=== PATIENT | female | born 1940 | race Caucasian/White ===

== ENCOUNTER → 2017-03-29 | Outpatient (CLI) | payer MEDICARE ==
[~2017-03-29] MED LIST: GADOBUTROL 7.5 MMOL/7.5 ML PFS ONE
== END | disposition home or self-care (01) ==
LOC: CFH 10:03
PROVIDERS: ATTEND Psychiatry & Neurology Neurology
DX: M50.322 Other cervical disc degeneration at C5-C6 level (principal); M50.222 Other cervical disc displacement at C5-C6 level; M47.892 Other spondylosis, cervical region; G24.3 Spasmodic torticollis
CPT/HCPCS: 72156; 82565; A9585

== ENCOUNTER → 2017-04-16 | Outpatient (CLI) | payer MEDICARE | END | disposition home or self-care (01) | LOC: CFH 07:43 | PROVIDERS: ATTEND Internal Medicine Cardiovascular Disease | DX: R53.82 Chronic fatigue, unspecified (principal) | CPT/HCPCS: 78452; 93017; A9502 ==

== ENCOUNTER → 2017-12-30 | Outpatient (CLI) | payer MEDICARE | END | disposition home or self-care (01) | LOC: EDSTATUS 08:45 → CFH 08:55 | DX: Z12.31 Encounter for screening mammogram for malignant neoplasm of breast (principal); Z13.820 Encounter for screening for osteoporosis; M85.88 Other specified disorders of bone density and structure, other site; N95.9 Unspecified menopausal and perimenopausal disorder | CPT/HCPCS: 77063; 77080; 77067 ==

== ENCOUNTER → 2018-04-24 | Outpatient (CLI) | payer MEDICARE | END | disposition home or self-care (01) | LOC: CARD 15:07 | PROVIDERS: ATTEND Psychiatry & Neurology Neurology | DX: G24.3 Spasmodic torticollis (principal); I10 Essential (primary) hypertension; H35.3130 Nonexudative age-related macular degeneration, bilateral, stage unspecified; H50.10 Unspecified exotropia | CPT/HCPCS: 95867 ==

== ENCOUNTER 2018-08-13 12:18 | Observation (INO) | payer MEDICARE ==
[~2018-08-13] VITALS: Ht 154.9 cm; Wt 65.0 kg
--- NOTE | 2018-08-13 12:24 | NUR ---
pt bib remsa for sudden onset epigastric cp at 11:00, resolved by 12:00. hx of anxiety. pt states she had a stressful morning prior to cp. currently 0/10 pain. connected to all monitors. vss. md to bedside for assesment. orders received. lab to bedside for draw. awaiting results.
[2018-08-13 12:36] LABS: BASOPHILS # (AUTO) 0.02 x10^3/uL (0-0.1); BASOPHILS % (AUTO) 0 % (0-1); EOSINOPHILS # (AUTO) 0.05 x10^3/uL (0-0.4); EOSINOPHILS % (AUTO) 1 % (1-7); LYMPHOCYTES % (AUTO) 21 % (22-44); MD NO; MEAN CORPUSCULAR HEMOGLOBIN 29.1 pg (27.0-34.8); MEAN CORPUSCULAR HGB CONC 33.3 g/dL (32.4-35.8); MEAN CORPUSCULAR VOLUME 87.3 fL (80-100); MEAN PLATELET VOLUME 7.5 fL (7.4-10.4); MONOCYTES # (AUTO) 0.39 x10^3/uL (0.2-0.8); MONOCYTES % (AUTO) 7 % (2-9); NEUTROPHILS # (AUTO) 4.13 x10^3/uL (1.8-6.8); NEUTROPHILS % (AUTO) 71 % (42-75); PLATELET COUNT 238 x10^3/uL (130-400); RED BLOOD COUNT 4.79 x10^6/uL (3.82-5.3); RED CELL DISTRIBUTION WIDTH 12.9 % (9.6-15.2)
[2018-08-13 12:46] LABS: INTERNATIONAL NORMALIZED RATIO 1.01 (0.93-1.1); PROTHROMBIN TIME 10.7 Seconds (9.6-11.5)
[2018-08-13 13:14] LABS: ALBUMIN 3.7 g/dL (3.4-5.0); ANION GAP 6 mmol/L (5-15); CALCIUM 8.9 mg/dL (8.5-10.1); CHLORIDE 108 mmol/L (98-107)
[2018-08-13 13:20] LABS: ALANINE AMINOTRANSFERASE 19 U/L (12-78); ALKALINE PHOSPHATASE 93 U/L (45-117); BILIRUBIN,TOTAL 0.8 mg/dL (0.2-1.0); CREATININE 0.82 mg/dL (0.55-1.02); TOTAL PROTEIN 7.2 g/dL (6.4-8.2); TROPONIN I < 0.015 ng/mL (0.000-0.045)
[2018-08-13] MEDS ORDERED: HYDR28.423 TP (13:23)
[2018-08-13] MEDS ORDERED: AMLO-150 PO (13:23)
[2018-08-13] MEDS ORDERED: fluticasone INH (13:23)
[2018-08-13] MEDS ORDERED: OXYB5TAB PO (13:23)
[2018-08-13] MEDS ORDERED: GLUC1TAB55 PO (13:23)
[2018-08-13] MEDS ORDERED: LOSA50TA14 PO (13:23)
[2018-08-13] MEDS ORDERED: DULO20CA45 PO (13:23)
--- NOTE | 2018-08-13 14:01 | NUR ---
PT RESTING IN ROOM. CALL LIGHT WITHIN REACH. AWAITING BED ASSIGNMENT.
--- NOTE | 2018-08-13 14:52 | NUR ---
REPORT GIVEN TO [facility]. PT READY FOR TRANSPORT.
[2018-08-13] MEDS ORDERED: ACETAMINOPHEN 650 MG/20.3 ML UDC PO PRN (15:30)
[2018-08-13] MEDS ORDERED: NITROGLYCERIN SINGLE TAB 0.4 MG SL PRN (15:30)
[2018-08-13] MEDS ORDERED: NITROGLYCERIN 0.4 MG/SPRAY SL PRN (15:30)
[2018-08-13] MEDS ORDERED: ONDANSETRON 2MG/ML, 2ML IVP PRN (15:30)
[2018-08-13] MEDS ORDERED: morphine SULFATE 10 MG/ML, 1ML IV PRN (15:30)
[2018-08-13] MEDS ORDERED: NITROGLYCERIN 0.4 MG BOTTLE (25 TABS) SL PRN (15:30)
[2018-08-13 15:31] VITALS: BP 149/72
[2018-08-13] MEDS: ENOXAPARIN 40 MG/0.4 ML SQ SCH (16:25)
[2018-08-13 18:34] LABS: TROPONIN I < 0.015 ng/mL (0.000-0.045)
[2018-08-13] MEDS: SODIUM CHLORIDE FLUSH 10ML SYR IVF SCH (20:30)
[2018-08-13] MEDS: DULOXETINE 20 MG CAPSULE.DR PO SCH (20:30)
[2018-08-13] MEDS: LOSARTAN 50MG TABLET PO SCH (20:31)
[2018-08-13 20:41] VITALS: BP 128/72
[2018-08-14 01:02] LABS: TROPONIN I < 0.015 ng/mL (0.000-0.045)
[2018-08-14 01:36] VITALS: BP 128/75
[2018-08-14] MEDS ORDERED: ASPIRIN 325 MG TABLET EC PO SCH (06:00)
[2018-08-14 06:07] LABS: CHOL/HDL RATIO 3.5; LDL/HDL RATIO 2.2 (0.5-3.0)
[2018-08-14 06:49] VITALS: BP 114/71
[2018-08-14] MEDS ORDERED: MAALOX/HYOSCYAMINE/LIDOCAINE 45 ML BTL PO PRN (08:00)
[2018-08-14] MEDS: DULOXETINE 20 MG CAPSULE.DR PO SCH (08:05)
[2018-08-14] MEDS: LOSARTAN 50MG TABLET PO SCH (08:05)
[2018-08-14] MEDS: SODIUM CHLORIDE FLUSH 10ML SYR IVF SCH (08:05)
[2018-08-14] MEDS ORDERED: AMLODIPINE 5 MG TABLET PO SCH (09:00)
[2018-08-14] MEDS ORDERED: OXYBUTYNIN CHLORIDE 5 MG TABLET PO SCH (09:00)
[2018-08-14] MEDS ORDERED: FLUTICASONE NASAL SPRAY 16GM NAS SCH (09:00)
[2018-08-14] MEDS ORDERED: REGADENOSON 0.4 MG/5 ML SYRINGE ONE (09:20)
[2018-08-14 13:36] VITALS: BP 119/69
[2018-08-14] MEDS: ENOXAPARIN 40 MG/0.4 ML SQ SCH (15:53)
[2018-08-14] MEDS ORDERED: CALCIUM CARBONATE 500 MG TAB.CHEW PO PRN (16:30)
[2018-08-14] MEDS ORDERED: CALC200T24 PO (17:08)
[2018-08-14] MEDS ORDERED: FAMO-79 PO (17:08)
== END 2018-08-14 18:19 | disposition home or self-care (01) ==
LOC: ED 13:28 → EDIP 13:47 → INTOOBSV 13:47 → 5SO 15:18
PROVIDERS: ADMIT Internal Medicine; ATTEND Internal Medicine
DX: R07.9 Chest pain, unspecified (principal); E78.5 Hyperlipidemia, unspecified; F41.1 Generalized anxiety disorder; I10 Essential (primary) hypertension; M41.9 Scoliosis, unspecified; M79.7 Fibromyalgia; Z80.42 Family history of malignant neoplasm of prostate; Z82.3 Family history of stroke; Z82.49 Family history of ischemic heart disease and other diseases of the circulatory system; Z87.891 Personal history of nicotine dependence; Z90.49 Acquired absence of other specified parts of digestive tract; Z90.710 Acquired absence of both cervix and uterus
CPT/HCPCS: 36415; 71045; 78452; 80053; 80061; 83735; 83880; 84484; 85025; 85610; 85730; 93005; 93017; 96372; 99284; A9502; C9898; G0378; J1650; J2785

== ENCOUNTER 2019-04-27 08:00 | Outpatient (CLI) | payer MEDICARE ==
[~2019-04-27 08:00] MED LIST changes: +AMLO-150 PO; +CALC200T24 PO; +DULO20CA45 PO; +FAMO-79 PO; -GADOBUTROL 7.5 MMOL/7.5 ML PFS ONE; +GLUC1TAB55 PO; +HYDR28.423 TP; +LOSA50TA14 PO; +OXYB5TAB2 PO; +fluticasone INH
[2019-04-27] MEDS ORDERED: LIDOCAINE 1%, 10ML ONE (09:10)
[2019-04-27] MEDS ORDERED: ATOR10TA PO (10:17)
[2019-04-27] MEDS ORDERED: BUPIVACAINE/PF 0.5% ONE (13:47)
[2019-04-27] MEDS ORDERED: EPINEPHRINE 1 MG/ML, 1ML ONE (13:47)
[2019-04-27] MEDS ORDERED: KETOROLAC 30 MG/1 ML ONE (14:51)
[2019-04-27] MEDS ORDERED: MEPERIDINE/PF 25MG/ML,1ML ONE (15:01)
[2019-04-27] MEDS ORDERED: OXYcodone 5 MG/5 ML ORAL.SOL UDC ONE (15:09)
[2019-04-27] MEDS ORDERED: ONDANSETRON 2MG/ML, 2ML ONE (15:10)
[2019-04-28] MEDS ORDERED: HYDR-3240 PO (08:47)
== END 2019-04-27 23:59 | disposition home or self-care (01) ==
LOC: RAD 08:00
PROVIDERS: ATTEND Surgery
DX: Z02.9 Encounter for administrative examinations, unspecified (principal)
CPT/HCPCS: 38792; J0171; A9541

== ENCOUNTER 2019-04-27 08:47 | Inpatient (IN) | payer MEDICARE ==
[~2019-04-27] VITALS: Ht 157.5 cm; Wt 69.1 kg
[~2019-04-27 08:47] MED LIST changes: +BUPIVACAINE/PF 0.5% ONE; +ISOSULFAN BLUE 10 MG/ML, 5ML IV ONE
[2019-04-27] MEDS ORDERED: LACTATED RINGERS 1,000 ML IV SCH ×2 (09:54→16:30)
[2019-04-27] MEDS ORDERED: ACETAMINOPHEN 500 MG TABLET PO ONE (10:00)
[2019-04-27] MEDS ORDERED: ATOR10TA PO (10:17)
[2019-04-27 10:19] VITALS: BP 146/79
[2019-04-27] MEDS ORDERED: PLEASE ENTER HEIGHT AND WEIGHT MC SCH (10:30)
[2019-04-27] MEDS ORDERED: FENTANYL PF 100 MCG/2ML ONE ×2 (12:14→14:44)
[2019-04-27] MEDS ORDERED: MIDAZOLAM 1 MG/ML, 2ML ONE (12:14)
[2019-04-27] MEDS ORDERED: PROPOFOL 10 MG/ML, 20ML ONE (12:14)
[2019-04-27] MEDS ORDERED: CEFAZOLIN 1,000 MG ONE ×2 (12:14)
[2019-04-27] MEDS ORDERED: ONDANSETRON 2MG/ML, 2ML ONE (12:15)
[2019-04-27] MEDS ORDERED: DEXAMETHASONE 4 MG/ML, 1ML ONE ×2 (12:15)
[2019-04-27] MEDS ORDERED: hydrALAzine 20 MG/ML, 1ML IV PRN (14:00)
[2019-04-27] MEDS ORDERED: OXYcodone 5 MG/5 ML ORAL.SOL UDC PO PRN (14:00)
[2019-04-27] MEDS ORDERED: LABETALOL 5MG/ML, 20ML IV PRN (14:00)
[2019-04-27] MEDS ORDERED: METOPROLOL 1 MG/ML, 5ML IV PRN (14:00)
[2019-04-27] MEDS ORDERED: HYDROmorphone 2 MG/ML, 1ML IVPush PRN (14:00)
[2019-04-27] MEDS ORDERED: ONDANSETRON 2MG/ML, 2ML IV PRN ×2 (14:00→16:30)
[2019-04-27] MEDS ORDERED: LORazepam 2 MG/ML, 1ML IVPush PRN (14:00)
[2019-04-27] MEDS ORDERED: MEPERIDINE/PF 25MG/ML,1ML IVPush PRN (14:00)
[2019-04-27] MEDS: FENTANYL PF 100 MCG/2ML IV PRN ×2 (14:46→14:55)
[2019-04-27] MEDS ORDERED: KETOROLAC 30 MG/1 ML IVPush PRN (15:00)
[2019-04-27] MEDS ORDERED: METOCLOPRAMIDE 5 MG/ML, 2ML ONE (15:33)
[2019-04-27] MEDS ORDERED: METOCLOPRAMIDE 5 MG/ML, 2ML IVPush PRN (16:00)
[2019-04-27] MEDS ORDERED: morphine SULFATE 10 MG/ML, 1ML IV PRN (16:30)
[2019-04-27] MEDS: HYDROcodone/APAP 5/325 TABLET PO PRN (18:11)
[2019-04-27 19:14] VITALS: BP 138/65
[2019-04-27] MEDS ORDERED: KETOROLAC 30 MG/1 ML IV PRN (20:30)
[2019-04-27] MEDS: OXYBUTYNIN CHLORIDE 5 MG TABLET PO SCH (20:44)
[2019-04-27] MEDS: DULOXETINE 20 MG CAPSULE.DR PO SCH (20:44)
[2019-04-27] MEDS ORDERED: [UNRECOGNIZED DRUG - OTHER] HOMETP SCH (21:00)
[2019-04-27] MEDS ORDERED: ATORVASTATIN 10 MG TABLET PO SCH (21:00)
[2019-04-27] MEDS ORDERED: HYDROCORTISONE CRM 0.5%, 30GM TP PRN (21:00)
[2019-04-28 00:04] VITALS: BP 145/72
[2019-04-28 04:01] VITALS: BP 150/5
[2019-04-28 06:54] VITALS: BP 144/79
[2019-04-28] MEDS: DULOXETINE 20 MG CAPSULE.DR PO SCH (08:17)
[2019-04-28] MEDS: OXYBUTYNIN CHLORIDE 5 MG TABLET PO SCH (08:17)
[2019-04-28] MEDS ORDERED: HYDR-3240 PO (08:47)
[2019-04-28] MEDS ORDERED: AMLODIPINE 5 MG TABLET PO SCH (09:00)
[2019-04-28] MEDS: HYDROcodone/APAP 5/325 TABLET PO PRN (10:09)
[2019-04-28] MEDS ORDERED: LACTATED RINGERS 1,000 ML IV SCH (16:30)
== END 2019-04-28 10:35 | disposition home or self-care (01) | DRG 581 ==
LOC: OUT 08:47 → 4NE 15:52 → OUT 16:01 → 4NE 16:01 → DCLOUNGE 04-28 10:21
PROVIDERS: ADMIT Surgery; ATTEND Surgery
PROC: 0HBV0ZZ Excision of Bilateral Breast, Open Approach (ICD-10-PCS; 2019-04-27)
PROC: 07B60ZZ Excision of Left Axillary Lymphatic, Open Approach (ICD-10-PCS; 2019-04-27)
PROC: 07B50ZX Excision of Right Axillary Lymphatic, Open Approach, Diagnostic (ICD-10-PCS; principal; 2019-04-27 13:30)
DX: C50.412 Malignant neoplasm of upper-outer quadrant of left female breast (principal); G47.30 Sleep apnea, unspecified; M19.90 Unspecified osteoarthritis, unspecified site; I10 Essential (primary) hypertension; E78.5 Hyperlipidemia, unspecified; C50.211 Malignant neoplasm of upper-inner quadrant of right female breast
CPT/HCPCS: 38792; 88305; 88307; 88333; 93005; C1729; G0378; J0171; J0690; J1100; J1885; J2250; J2405; J2704; J3010; A9541; J2175; J2765; J7120

== ENCOUNTER 2019-06-12 09:05 | Outpatient (CLI) | payer MEDICARE ==
[~2019-06-12 09:05] MED LIST changes: +ATOR10TA PO; -BUPIVACAINE/PF 0.5% ONE; +HYDR-3240 PO; -ISOSULFAN BLUE 10 MG/ML, 5ML IV ONE
== END 2019-06-12 23:59 | disposition home or self-care (01) ==
LOC: ROC 09:05
PROVIDERS: ATTEND Radiology Radiation Oncology
DX: C50.911 Malignant neoplasm of unspecified site of right female breast (principal); C50.912 Malignant neoplasm of unspecified site of left female breast
CPT/HCPCS: 99214; G0463